=== PATIENT | female | born 1990 | race Caucasian/White ===

== ENCOUNTER 2023-12-07 10:29 | Emergency (ER) | payer OTHER ==
[~2023-12-07] VITALS: Ht 170.2 cm; Wt 40.8 kg
[~2023-12-07 10:29] MED LIST: ALPRAZOLAM0.5 MG PO; KEFLEX500 MG PO; LAMICTAL200 M1; PEPCID40 MG PO; ZOFRAN4 MG PO; ZOLOFT100 MG PO
[2023-12-07] MEDS ORDERED: 0.9 % SODIUM CHLORIDE 1,000 ML IV STA (11:42)
[2023-12-07 12:37] LABS: HEMOGLOBIN 12.3 g/dL (12.0-15.00); MEAN CELL VOLUME 80.3 fL (80.00-100.00); MEAN CORPUSCULAR HEMOGLOBIN 27.5 pg (27.00-32.0); MEAN CORPUSCULAR HGB CONC 34.3 g/dl (32.0-36.0); PLATELET COUNT 184 K/uL (150-450); RED BLOOD COUNT 4.48 M/uL (4.00-6.00); RED CELL DISTRIBUTION WIDTH 12.4 % (11.5-14.5)
[2023-12-07 12:59] LABS: CALCIUM 8.9 mg/dL (8.5-10.1); CREATININE SERUM 0.74 mg/dL (0.55-1.02); GFR 89.84; POTASSIUM 4.06 mEq/L (3.5-5.1)
[2023-12-07 13:07] LABS: PH,URINE 6.5 (5.0-8.0); URINE APPEARANCE Clear; URINE BILIRRUBIN Negative (NEGATIVE); URINE BLOOD Negative; URINE COLOR Yellow; URINE GLUCOSE Negative (NEGATIVE); URINE KETONE Negative (NEGATIVE); URINE LEUKOCYTE Negative; URINE NITRATE Negative; URINE PROTEIN Negative (NEGATIVE)
[2023-12-07 13:08] LABS: URINE BACTERIA 36.5 uL (0.0-1933); URINE EPITHELIAL CELLS 4.3 uL (0.0-38.8); URINE RBC 7.4 uL (0.0-20.8)
[2023-12-07 13:10] LABS: URINE WBC 1.3 uL (0.0-23.2)
[2023-12-07] MEDS ORDERED: BARIUM SULFATE 450 ML ORAL.SUSP PO ONE (13:44)
[2023-12-07] MEDS ORDERED: MEPERIDINE HCL/PF 25 MG/ML VIAL IV ONE (14:15)
== END 2023-12-07 18:03 | disposition home or self-care (01) ==
LOC: ER 10:30
PROVIDERS: Emergency Medicine
DX: R63.0 Anorexia (principal); R10.84 Generalized abdominal pain; E86.0 Dehydration

== ENCOUNTER 2023-12-18 09:58 | Emergency (ER) | payer OTHER ==
[~2023-12-18] VITALS: Ht 170.2 cm; Wt 38.6 kg
[2023-12-18] MEDS ORDERED: ZOLOFT100 MG PO (10:14)
[2023-12-18] MEDS ORDERED: 0.9 % SODIUM CHLORIDE 1,000 ML IV STA (10:57)
[2023-12-18] MEDS ORDERED: FAMOtidine 10 MG/ML (4ML VIAL) IV STA (10:59)
[2023-12-18] MEDS ORDERED: PROMETHAZINE HCL 50 MG/ML AMPUL IM ONE ×2 (11:00→11:05)
[2023-12-18] MEDS ORDERED: FAMOTIDINE/PF 20 MG/2 ML VIAL ONE (11:06)
[2023-12-18 11:45] LABS: HEMATOCRIT 37.2 % (36.0-45.00); HEMOGLOBIN 12.6 g/dL (12.0-15.00); MEAN CELL VOLUME 79.7 fL (80.00-100.00); MEAN CORPUSCULAR HEMOGLOBIN 27.1 pg (27.00-32.0); MEAN CORPUSCULAR HGB CONC 33.9 g/dl (32.0-36.0); PLATELET COUNT 214 K/uL (150-450); RED BLOOD COUNT 4.66 M/uL (4.00-6.00); RED CELL DISTRIBUTION WIDTH 13.2 % (11.5-14.5)
[2023-12-18 12:25] LABS: ALBUMIN 4.4 gm/dL (3.4-5.0); BILIRUBIN TOTAL 0.46 mg/dL (0.3-1.2); BILIRUBIN,CONJUGATED 0.15 mg/dL (0.0-0.2); BILIRUBIN,UNCONJUGATED 0.31 mg/dL (0.0-0.6); CALCIUM 8.9 mg/dL (8.5-10.1); CREATININE SERUM 0.82 mg/dL (0.55-1.02); GFR 79.8; POTASSIUM 3.32 mEq/L (3.5-5.1); TOTAL PROTEIN 7.6 gm/dL (6.4-8.2)
[2023-12-18 14:24] LABS: PH,URINE 6.5 (5.0-8.0); URINE APPEARANCE Clear; URINE BILIRRUBIN Negative (NEGATIVE); URINE BLOOD Negative; URINE COLOR Yellow; URINE GLUCOSE Negative (NEGATIVE); URINE KETONE Negative (NEGATIVE); URINE LEUKOCYTE Negative; URINE NITRATE Negative; URINE PROTEIN Negative (NEGATIVE); URINE UROBILINOGEN 0.2 E.U./dl
[2023-12-18 14:29] LABS: URINE BACTERIA 30.2 uL (0.0-1933); URINE EPITHELIAL CELLS 6.8 uL (0.0-38.8); URINE RBC 4.2 uL (0.0-20.8)
[2023-12-18 14:31] LABS: URINE WBC 0.6 uL (0.0-23.2)
[2023-12-18 15:18] LABS: COCAINE NEGATIVE (NEGATIVE); METHADONE NEGATIVE (NEGATIVE); OPIATES NEGATIVE (NEGATIVE); THC ( Cannabinoids) POSITIVE (NEGATIVE)
== END 2023-12-18 15:35 | disposition left against medical advice (07) ==
LOC: ER 09:59
PROVIDERS: General Practice
DX: F43.10 Post-traumatic stress disorder, unspecified (principal); F50.00 Anorexia nervosa, unspecified; E86.0 Dehydration